=== PATIENT | male | born 1960 | race Caucasian/White ===

== ENCOUNTER 2025-07-26 06:28 | Day surgery (SDC) | payer OTHER, SELFPAY ==
[2025-07-26] VITALS (13 sets, daily range): BP systolic 134–158; BP diastolic 79–93; BMI 32.7
[2025-07-26] MEDS: NSS 337 ML IV (07:16)
[2025-07-26] MEDS: LOW STRENGTH ASPIRIN 81 MG PO (07:16)
[2025-07-26 07:29] LABS: Hematocrit 42.7 % (39.0-52.0); Hemoglobin 15.5 g/dL (13.0-18.0); Mean Corp Hgb Conc. 36.3 g/dL (33.0-37.0); Mean Corpuscular Volume 92.6 fL (80.0-94.0); Platelet Count 201 10^3/uL (130-400); Red Cell Dist. Width 11.9 % (11.5-14.5)
[2025-07-26 08:28] LABS: ACT-LR - POC > 397 Seconds (116-155)
--- NOTE | 2025-07-26 08:40 | ITS.CL.CATH ---
[facility] - Catheterization
Cardiac Catheterization
Procedure Report:
LEFT HEART CATHETERIZATION
Date of Procedure: July 26, 2025
Procedures performed:
1: Coronary angiography
2: Left ventricular hemodynamic assessment
3: Physiologic lesion assessment of the left anterior descending artery
Primary Care Physician: Dr. Jackie Tarango
Primary Executive Account Manager: Myself
INDICATION: The patient is a 64-year-old man with a past medical history of coronary artery disease status post circumflex interventions x 2 in the past who presents with atypical symptoms but a concerning exercise stress test. He walked 9-1/2
minutes on a [place] without clear symptoms but had ST changes which were new compared to prior testing. He is referred for coronary angiography.
ACCESS: The patient was prepped and draped in usual sterile fashion. A 6 [place] sheath was placed in the right radial artery using the Seldinger over the wire technique.
HEMODYNAMIC FINDINGS (mmHg):
LV(s/d,EDP): 150/12, 20
Ao(s/d,m): 150/82, 111
ANGIOGRAPHIC FINDINGS:
Single-plane Left Ventriculography in LEONG Projection: Not done.
Coronary Angiography:
Dominance: Left
Left Main: Large-caliber, normal.
Left Anterior Descending: The left anterior descending artery is a medium caliber vessel that gives rise to a high first diagonal branch. The LAD itself has a ostial 30-40% stenosis which is new compared to prior angiography in 2014. This is
followed by a smooth proximal 50% stenosis. The remainder of the LAD and diagonal branch appear angiographically normal with normal flow.
Left Circumflex: The left circumflex is a medium to large caliber dominant vessel that gives rise to a large first obtuse marginal. The major medial obtuse marginal branch is widely patent with only luminal irregularities. There is a medium
caliber inferior branch that has a true ostial 80% stenosis with normal distal flow. The previously placed overlapping circumflex stents are widely patent with no significant in-stent restenosis. Interestingly the jailed left-sided posterior left
ventricular branch which had poor flow at the end of intervention in 2014 is now widely patent into 2 medium caliber branches. Although I suspect there has to be some ostial pinching based on it being jailed in 2014. That said I cannot appreciate
this angiographically and there is definitely normal flow in these 2 significant branches. The distal circumflex is widely patent with only mild luminal irregularities and no a medium caliber posterior descending artery that has normal flow.
Right Coronary: Small nondominant vessel that is widely patent.
Other angiography:
1: In light of the new ostial and proximal LAD disease, I elected to perform physiologic lesion assessment. The patient was pretreated with aspirin. Unfractionated heparin was given. A 6 [place] XB 3.5 guiding catheter was used to engage the left
main. A Omni pressure wire was advanced with the transducer positioned in the normal-appearing mid to distal LAD. The IFR was serially measured at 0.94 above the ischemic threshold. The wire was pulled back and final angiography confirmed no
changes.
Fluoroscopy Time (min): 4.7
Radiation Dose (mGy): 419
DAP (Gy.cm2): 38
Closure device: None. A TR band was applied for hemostasis at the right wrist.
Complications: None.
ASSESSMENT:
1: Nonobstructive disease by physiologic lesion assessment in the LAD with widely patent previously placed circumflex. There is branch vessel disease in OM1 that I would treat medically. In addition as described above the flow into the jailed
left-sided posterior left ventricular branch is now normal which is surprising considering it was occluded in 2014.
2: Mildly elevated left ventricular filling pressures.
CONCLUSIONS and RECOMMENDATIONS:
1: Continue aggressive medical therapy for coronary artery disease, hypertension, and hyperlipidemia.
2: Close clinical follow-up as scheduled.
Qing Jimenez M.D.
Copy to: Dr. Jackie Tarango
[2025-07-26] MEDS: NSS 1000 IV (08:56)
== END 2025-07-26 11:52 | disposition home or self-care (01) ==
LOC: CATH 06:28
PROVIDERS: ATTENDING PHYSICIAN Internal Medicine Interventional Cardiology; FAMILY PHYSICIAN Family Medicine
DX: I25.10 Atherosclerotic heart disease of native coronary artery without angina pectoris (principal); E78.5 Hyperlipidemia, unspecified; I10 Essential (primary) hypertension; Z95.5 Presence of coronary angioplasty implant and graft
CPT/HCPCS: 93799; 85027; 85347; 93458; C1769; C1887; C1894; Q9967